=== PATIENT | male | born 1975 | race Caucasian/White ===

== ENCOUNTER 2022-03-05 08:08 | Day surgery (SDC) | payer MEDICAID ==
[~2022-03-05] VITALS: Ht 180.3 cm; Wt 106.6 kg
[2022-03-05 14:05] VITALS: BP_SYST 141
== END 2022-03-05 10:10 | disposition home or self-care (01) ==
LOC: SDS 08:08 → SMU 08:09 → SDS 10:10
PROVIDERS: ATTEND Internal Medicine Gastroenterology
DX: K21.9 Gastro-esophageal reflux disease without esophagitis (principal); R13.10 Dysphagia, unspecified; K29.50 Unspecified chronic gastritis without bleeding; J45.909 Unspecified asthma, uncomplicated; Z87.891 Personal history of nicotine dependence; Z79.899 Other long term (current) drug therapy; Z20.822 Contact with and (suspected) exposure to COVID-19
CPT/HCPCS: 36415 ×2; 43239; 87081; 87426; 87635; 88305; 88312; 88313; 99152; G0378; U0003